=== PATIENT | female | born 1950 | race Two or more races ===

== ENCOUNTER 2021-04-16 11:40 | Emergency (ER) | payer OTHER ==
[~2021-04-16] VITALS: Ht 154.9 cm; Wt 86.2 kg
[2021-04-16] MEDS ORDERED: SODIUM CHLORIDE 0.9% 1,000 ML IV ONE (12:15)
[2021-04-16] MEDS ORDERED: SODIUM CHLORIDE 0.9% 500 ML IV ONE (12:15)
[2021-04-16 12:38] LABS: Basophils % (auto) 0.4 % (0.0-2.0); Eosinophils # (auto) 0.1 10 ^3/uL (0-0.8); Eosinophils % (auto) 0.4 % (0.0-7.0); Lymphocytes # (auto) 2.6 10 ^3/uL (0.4-5.4); Lymphocytes % (auto) 20.4 % (10.0-50.0); Monocytes # (auto) 1.1 10 ^3/uL (0-1.3); Nucleated Red Blood Cells % 0.1 %; Red Blood Cells 6.14 10^6/uL (4.0-5.20)
[2021-04-16 12:40] LABS: Basophils # (auto) 0 10 ^3/uL (0-0.2); Hematocrit 51.6 % (36.0-46.0); Hemoglobin 16.5 g/dL (12.2-16.2); Mean Corpuscular Hemoglobin 26.9 pg (28.0-32.0); Mean Corpuscular Volume 84.1 fL (80.0-100.0); Monocytes % (auto) 8.3 % (0.0-12.0); Neutrophils # (auto) 9.1 10 ^3/uL (1.6-8.6); Neutrophils % (auto) 70.5 % (37.0-80.0); Red Cell Distribution Width 14.3 % (11.8-14.3); White Blood Cell 12.9 10^3/uL (4.4-10.8)
[2021-04-16 12:45] LABS: Albumin 3.8 g/dL (3.4-5.0); BUN/Creatinine Ratio 25.5; Calcium 8.9 mg/dL (8.5-10.1); Magnesium 2.4 mg/dL (1.6-2.6)
[2021-04-16 12:48] LABS: Bilirubin, Total 0.6 mg/dL (0.2-1.0); Total Protein 8.2 g/dL (6.4-8.2)
[2021-04-16 13:53] LABS: Urine Bacteria FEW /hpf (None Seen); Urine Blood Negative /uL (Negative); Urine Hyaline Cast MOD /lpf (0 - 2); Urine Specific Gravity 1.008 (1.001-1.035); Urine WBC 1 /hpf (0 - 5)
[2021-04-16] MEDS ORDERED: IPRATROPIUM BROM 0.5 MG/2.5ML INH SOL NEB ONE (16:15)
[2021-04-16] MEDS ORDERED: ALBUTEROL SULF 2.5 MG/0.5ML(0.5%) NEB SOLN NEB ONE (16:15)
[2021-04-16] MEDS ORDERED: methylPREDNISolone SOD SUCC 125 MG/2 ML VL IV ONE (16:15)
[2021-04-16] MEDS ORDERED: AZITHROMYCIN 500MG/ 250ML 250 ML IV ONE (18:00)
[2021-04-17 00:48] VITALS: BP 138/75
== END 2021-04-17 01:18 | disposition short-term general hospital (02) ==
LOC: ER 11:40
DX: J45.909 Unspecified asthma, uncomplicated (principal); I10 Essential (primary) hypertension; G89.29 Other chronic pain; M54.9 Dorsalgia, unspecified; Z20.822 Contact with and (suspected) exposure to COVID-19
CPT/HCPCS: 36415; 71045; 80053; 81001; 83605; 83735; 84484; 85025; 85379; 87040; 87426; 87804; 93005; 94644; 96361; 96365; 96366; 96375; 99285; J0456; J2930; J7030; J7644